=== PATIENT | female | born 1930 | race Caucasian/White ===

== ENCOUNTER → 2016-04-17 | Outpatient (CLI) | payer MEDICARE ==
[~2016-04-17] MED LIST: ALPR0.2550 PO; ALPR0.5T72 PO; AMLO5TAB2 PO; ASCO500T20 PO; ASP325TEC PO; ASP81TEC PO; ATEN25TA PO; ATEN50TA PO; CA C1TAB66 PO; CALC-404 PO; CHOL10003 PO; CLOP75TA PO; CLOP75TA28 PO; CYAN10007 PO; CYAN1TAB26 PO; ISM60TCR PO; ISOS30TA3 PO; ISOS30TA7 PO; LANS30CA PO; LOSA100T16 PO; LVT.1T PO; MAGN-47 PO; MAGN400C PO; Metoprolol Succinate PO; NTR.4SL SL; PARO10TA2 PO; PNT40TEC PO; POTA10TA PO; SIMV40TA2 PO; TOLT1TAB PO; TRAM50TA2 PO; TRIA1TAB2 PO; TRIA1TAB3 PO; TRM50T PO
--- OUTSIDE RECORDS SUMMARY | 2016-04-17 15:16 | XMS REPORT | Continuity of Care Document ---
Author Author [facility] Organization [facility] Address Unknown Phone Unavailable Care Team Providers Care Knitting Machine Fixer Head Name Role Phone SHLOMO KENNEDY MD PCP Insurance Providers Payer Name Policy Number Subscriber Name Relationship Wps Medicare [id number] Kirit Wen 18 Self / Same As Patient Blue Cross Mc[employer] Supp [id number] Kirit Wen 18 Self / Same As Patient Advance Directives Directive Response Recorded Date/Time Advance Directives Yes 01/21/14 12:10pm Health Care Power of Poured Concrete Wall Technician Y ALL CHILDREN: JESS FIELDS STEVE, AND CURT 01/21/14 12:10pm Organ Donor No 01/21/14 12:10pm Resuscitation Status Full Code 01/21/14 12:10pm Chief Complaint and Reason for Visit Chief Complaint CHEST PAIN Reason for Visit Chest pain Problems Medical Problems Problem Onset Date Status Chest pain Unknown Active Medications Medication Dose Route Sig Days/Qty Instructions Order Date Discontinued Date Status Atenolol 50 Mg PO TWICE A DAY 10/04/10 02/13/11 Discontinued Triamterene/Hctz 1 Tab PO DAILY 37.5-25 MG TABLET 10/04/10 Active Levothyroxine Sodium (Levothroid) 100 Mcg PO DAILY 10/04/10 Active Alprazolam 1 Each PO BEDTIME 10/04/10 10/05/10 Discontinued Simvastatin 40 Mg PO BEDTIME 10/04/10 Active Isosorbide Dinitrate 1 Tab PO TWICE A DAY 10/04/10 10/04/10 Discontinued Losartan Potassium 100 Mg PO DAILY 10/04/10 Active Lansoprazole 30 Mg PO DAILY before breakfast 10/04/10 10/06/10 Discontinued Cholecalciferol 1,000 Unit PO DAILY 10/04/10 09/04/12 Discontinued Cyanocobalamin 1,000 Mcg PO 10/04/10 10/05/10 Discontinued Aspirin 81 Mg PO BEDTIME 10/04/10 10/06/10 Discontinued Ca Carbonate/Vitamin D3/Vit K 1 Each PO 10/04/10 10/05/10 Discontinued Isosorbide Mononitrate 60 Mg PO DAILY 10/04/10 01/21/14 Discontinued Tolterodine Tartrate 1 Mg PO DAILY PRN 10/04/10 09/03/12 Discontinued Calcium Carbonate/Vitamin D3 1 Tab PO DAILY 10/05/10 09/04/12 Discontinued Cyanocobalamin/Folic Acid 1 Tab PO DAILY 10/05/10 09/04/12 Discontinued Alprazolam 0.25 Mg PO BEDTIME 10/05/10 Active Ascorbic Acid 500 Mg PO DAILY 10/05/10 01/11/12 Discontinued Aspirin 325 Mg PO DAILY 10/06/10 02/13/11 Discontinued Pantoprazole Sod 40 Mg PO DAILY 10/06/10 Active Clopidogrel Bisulfate 75 Mg PO DAILY 10/06/10 01/19/14 Discontinued Aspirin 81 Mg PO DAILY 02/13/11 Active Atenolol 25 Mg PO TWICE A DAY 02/13/11 09/04/12 Discontinued Magnesium Hydroxide 400 Mg PO TWICE A DAY PRN NEEDED FOR ACID REFLUX 01/07/12 09/04/12 Discontinued Tramadol HCl 1 - 2 Tab PO every 4 to 6 hours PRN 30 Qty 01/11/1205/19 Discontinued Nitroglycerin 0.4 Mg SL Q 5 MIN X 3 DOSES PRN 05/19/12 Active Paroxetine Hcl 10 Mg PO DAILY 09/03/12 Active Amlodipine Besylate (Norvasc 5 Mg) 5 Mg PO TWICE A DAY 09/04/12 Active Magnesium Oxide 400 Mg PO DAILY 09/04/12 Active Potassium Chloride 10 Meq PO DAILY 09/04/12 Active Tramadol Hcl 50-100 Mg PO EVERY 6 HOURS PRN PAIN TAKE 1-2 (50MG) TABLETS 01/19/14 Active Clopidogrel Bisulfate 75 Mg PO DAILY 01/21/14 Active Isosorbide Mononitrate (Imdur) 60 Mg PO DAILY 01/21/14 Active [Metoprolol Succinate] 50 Mg PO DAILY 30 Qty 01/22/14 Active Social History Social History Problem Response Recorded Date/Time Alcohol Use Denies Use 01/21/2014 12:10pm Recreational Drug Use No 01/21/2014 12:10pm Recent Foreign Travel No 01/21/2014 12:10pm Recent Infectious Disease Exposure No 01/21/2014 12:10pm Hospitalization with Isolation Denies 01/22/2014 7:40pm Smoking Status Never a Smoker 01/21/2014 12:10pm Query Response Start Date Stop Date Smoking Status Never a Smoker Hospital Discharge Instructions Patient Instructions Physician Instructions New, Converted or Re-Newed RX: RX on Chart Patient Instructions: Please schedule follow up appointment to see Dr. Young next week Plan of Care Discharge Date 01/22/14 12:32pm Disposition 01 HOME, SELF-CARE Instructions/Education Provided Chronic Hypertension (DC) Forms Provided PDI Medical Prescriptions See Medications Section Referrals Dr. Young (Unspecified) 1 Week JAMIE YOUNG MD FACP FACC CCDS (Unspecified) 02/01/14 Address: [address] [place] [address] [address] [place] [address] Care Plan and Goals Do not discharge until after seen by Dr. Young Functional Status Query Response Date Recorded Comprehension Ability Understands Concepts January 22, 2014 9:00am Allergies, Adverse Reactions, Alerts Allergen Type Severity Reaction Status Last Updated oxycodone HCl Allergy Unknown NAUSEA Active 01/21/14 Codeine Adverse Reaction Intermediate NAUSEA & VOMITING Active 01/16/06 acetaminophen Allergy Unknown NAUSEA Active 01/21/14 Roxithromycin Allergy Unknown Active 01/16/06 Immunizations Name Given Type Date of Pneumonia Vaccine 01/22/14 Historical Date of Influenza Vaccine 12/09/13 Historical Hepatitis A No Historical Hepatitis B No Historical Tetanus Booster (TDap) Unknown Historical pneumococcal polysaccharide PPV23 01/22/14 Administered pneumococcal polysaccharide PPV23 01/22/14 Administered Vital Signs Acute Vital Signs Vital Response Date/Time Temperature (Fahrenheit) 99.0 degrees F (97.6 - 99.5) Temperature (Calculated Celsius) 37.39551 degrees C (36.4 - 37.5) Temperature Source Tympanic Pulse Rate (adult) 63 bpm (60 - 90) Respiratory Rate 20 bpm (12 - 24) O2 Sat by Pulse Oximetry 96 % (88 - 100) Blood Pressure 147/75 mm Hg Pain Pain Intensity 0 Height (Feet) 5 feet Height (Inches) 2.00 inches Height (Calculated Centimeters) 157.225214 cm Weight (Pounds) 220 pounds Weight (Ounces) 8.0 oz Weight (Calculated Grams) 612148.119 gm Weight (Calculated Kilograms) 100.848916 kilograms Calculated BMI 41.15 Results Test Source Date Result Interp. Ref. Range Comments Activated Partial Thromboplast Time September 03, 2012 9:24am 32 SEC N 24-35 Has specimen been collected/obtained? Y Alanine Aminotransferase (ALT/SGPT) September 04, 2012 4:50am 27 U/L L 30-65 Albumin September 04, 2012 4:50am 3.0 G/DL L 3.4-5.0 Alkaline Phosphatase September 04, 2012 4:50am 62 U/L N 50-136 Amylase Level October 04, 2010 3:30pm 29 U/L N 25-115 Aspartate Amino Transf (AST/SGOT) September 04, 2012 4:50am 13 U/L L 15-37 B-Type Natriuretic Peptide January 30, 2011 11:24am 102.0 PG/ML H 5.0- 100.0 BUN/Creatinine Ratio September 04, 2012 4:50am 13 - Basophils # (Auto) September 04, 2012 4:50am 0.1 10^3/uL N 0.0-0.1 Basophils (%) (Auto) September 04, 2012 4:50am 1 % N 0-10 Blood Urea Nitrogen September 04, 2012 4:50am 20 MG/DL H 7-18 Calcium Level September 04, 2012 4:50am 8.2 MG/DL L 8.5-10.1 Carbon Dioxide Level September 04, 2012 4:50am 25 MMOL/L N 21-32 Chloride Level September 04, 2012 4:50am 102 MMOL/L N 101-110 Cholesterol Level September 04, 2012 4:50am 131 MG/DL N -200 Creatine Kinase MB September 03, 2012 9:24am 0.5 NG/ML N 0.0-3.6 Has specimen been collected/obtained? Y Creatinine September 04, 2012 4:50am 1.5 MG/DL H 0.6-1.3 D-Dimer September 03, 2012 9:24am 0.51 UG/ML H 0.00-0.49 Comments to Dial Screw Assembler: ADD TO BLOOD IN LAB Eosinophils # (Auto) September 04, 2012 4:50am 0.3 10^3/uL N 0.0-0.3 Eosinophils (%) (Auto) September 04, 2012 4:50am 6 % N 0-10 Erythrocyte Sedimentation Rate January 09, 2006 10:05am 20 MM/HR N 0- 30 Has specimen been collected/obtained? Y Glucose Level September 04, 2012 4:50am 121 MG/DL H 74-106 HDL Cholesterol September 04, 2012 4:50am 55 MG/DL N 35-60 Hematocrit September 04, 2012 4:50am 31 % L 35-52 Hemoglobin September 04, 2012 4:50am 10.6 G/DL L 11.5-16.0 Hemoglobin A1c January 30, 2011 11:24am 6.0 % N 4.8-6.0 LDL Cholesterol September 04, 2012 4:50am 58 MG/DL N 0-129 Lipase October 04, 2010 3:30pm 116 U/L N 73-393 Lymphocytes # (Auto) September 04, 2012 4:50am 1.4 X 10^3 N 1.0-4.0 Lymphocytes (%) (Auto) September 04, 2012 4:50am 27 % N 12-44 Magnesium Level September 04, 2012 4:50am 1.8 MG/DL N 1.8-2.4 Mean Corpuscular Hemoglobin September 04, 2012 4:50am 28 PG N 25-34 Mean Corpuscular Hemoglobin Concent September 04, 2012 4:50am 34 G/DL N 32- 36 Mean Corpuscular Volume September 04, 2012 4:50am 83 FL N 80-99 Mean Platelet Volume September 04, 2012 4:50am 11.5 FL H 7.4-10.4 Monocytes # (Auto) September 04, 2012 4:50am 0.6 X 10^3 N 0.0-1.0 Monocytes (%) (Auto) September 04, 2012 4:50am 11 % N 0-12 Myoglobin September 03, 2012 9:24am 96 UG/L H 10-92 Has specimen been collected/obtained? Y Neutrophils # (Auto) September 04, 2012 4:50am 2.8 X 10^3 N 1.8-7.8 Neutrophils (%) (Auto) September 04, 2012 4:50am 56 % N 42-75 Platelet Count September 04, 2012 4:50am 171 10^3/uL N 130-400 Potassium Level September 04, 2012 4:50am 3.8 MMOL/L N 3.6-5.0 Prothromb Time International Ratio February 13, 2011 12:41pm 1.0 N 0.8- 1.4 INTERPRETIVE DATASUGGESTED THERAPEUTIC RANGE FOR INR'S : VENOUS THROMBOSIS, PULMONARY EMBOLISM, OR PREVENTION OF SYSTEMIC EMBOLISM (EG. IN ATRIAL FIBRILLATION): 2.0 - 3.0 MECHANICAL PROSTHETIC HEART VALVES: 2.5 - 3.5* *NOTE: INR'S UP TO 4.5 MAY BE NECESSARY IN SELECTED GROUPS OF HIGH RISK PATIENTS. [employer] OF CHEST PHYSICIANS CONSENSUS CONFERENCE ON ANTITHROMBOTIC THERAPY (2000). Prothrombin Time September 03, 2012 9:24am 13.0 SEC N 12.2-14.7 Has specimen been collected/obtained? Y Red Blood Count September 04, 2012 4:50am 3.77 10^6/uL L 4.35-5.85 Red Cell Distribution Width September 04, 2012 4:50am 14.3 % N 10.0-14.5 Sodium Level September 04, 2012 4:50am 133 MMOL/L L 135-145 Thyroid Stimulating Hormone (TSH) October 05, 2010 3:58am 1.34 UIU/ML N 0.34-5.60 Total Bilirubin September 04, 2012 4:50am 0.4 MG/DL N 0.0-1.0 Total Creatine Kinase September 03, 2012 9:24am 93 U/L N 1-159 Has specimen been collected/obtained? Y Total Protein September 04, 2012 4:50am 5.9 G/DL L 6.4-8.2 Triglycerides Level September 04, 2012 4:50am 90 MG/DL N 30.0-150.0 Troponin I September 03, 2012 3:34pm < 0.10 NG/ML 0.00-0.10 Any elevation of troponin above the limit of the reference range is indicative of myocardial injury from any cause. Significant interval decrease or increase between elevated troponin values at 0 and 6 hours (> 20%) would, in the context of related clinical and EKG findings favor ischemic myocardial injury. Urine Bacteria October 05, 2010 4:35am NEGATIVE - Has specimen been collected/obtained? YComments to Dial Screw Assembler: ALREADY SENT THE UA Specimen Description VOID Urine Bilirubin October 05, 2010 4:35am NEGATIVE - Has specimen been collected/obtained? YComments to Dial Screw Assembler: ALREADY SENT THE UA Specimen Description VOID Urine Casts October 05, 2010 4:35am NONE - Has specimen been collected/ obtained? YComments to Dial Screw Assembler: ALREADY SENT THE UA Specimen Description VOID Urine Clarity October 05, 2010 4:35am CLEAR - Has specimen been collected/obtained? YComments to Dial Screw Assembler: ALREADY SENT THE UA Specimen Description VOID Urine Color October 05, 2010 4:35am YELLOW - Has specimen been collected /obtained? YComments to Dial Screw Assembler: ALREADY SENT THE UA Specimen Description VOID Urine Crystals October 05, 2010 4:35am NONE - Has specimen been collected/obtained? YComments to Dial Screw Assembler: ALREADY SENT THE UA Specimen Description VOID Urine Culture Indicated October 05, 2010 4:35am NO - Has specimen been collected/obtained? YComments to Dial Screw Assembler: ALREADY SENT THE UA Specimen Description VOID Urine Glucose (UA) October 05, 2010 4:35am NEGATIVE - Has specimen been collected/obtained? YComments to Dial Screw Assembler: ALREADY SENT THE UA Specimen Description VOID Urine Ketones October 05, 2010 4:35am NEGATIVE - Has specimen been collected/obtained? YComments to Dial Screw Assembler: ALREADY SENT THE UA Specimen Description VOID Urine Leukocyte Esterase October 05, 2010 4:35am NEGATIVE - Has specimen been collected/obtained? YComments to Dial Screw Assembler: ALREADY SENT THE UA Specimen Description VOID Urine Mucus October 05, 2010 4:35am NEGATIVE - Has specimen been collected/obtained? YComments to Dial Screw Assembler: ALREADY SENT THE UA Specimen Description VOID Urine Nitrate January 09, 2006 10:12am Negative - Has specimen been collected/obtained? YSpecimen Description CLEAN CATCH Urine Nitrite October 05, 2010 4:35am NEGATIVE - Has specimen been collected/obtained? YComments to Dial Screw Assembler: ALREADY SENT THE UA Specimen Description VOID Urine Protein October 05, 2010 4:35am NEGATIVE - Has specimen been collected/obtained? YComments to Dial Screw Assembler: ALREADY SENT THE UA Specimen Description VOID Urine RBC October 05, 2010 4:35am NONE /HPF - Has specimen been collected/obtained? YComments to Dial Screw Assembler: ALREADY SENT THE UA Specimen Description VOID Urine Specific [place] October 05, 2010 4:35am 1.015 L - Has specimen been collected/obtained? YComments to Dial Screw Assembler: ALREADY SENT THE UA Specimen Description VOID Urine Squamous Epithelial Cells October 05, 2010 4:35am 5-10 - Has specimen been collected/obtained? YComments to Dial Screw Assembler: ALREADY SENT THE UA Specimen Description VOID Urine Urobilinogen October 05, 2010 4:35am NORMAL MG/DL - Has specimen been collected/obtained? YComments to Dial Screw Assembler: ALREADY SENT THE UA Specimen Description VOID Urine WBC October 05, 2010 4:35am RARE /HPF - Has specimen been collected/obtained? YComments to Dial Screw Assembler: ALREADY SENT THE UA Specimen Description VOID Urine pH October 05, 2010 4:35am 5.0 - Has specimen been collected/ obtained? YComments to Dial Screw Assembler: ALREADY SENT THE UA Specimen Description VOID VLDL Cholesterol September 04, 2012 4:50am 18 MG/DL N 5-40 White Blood Count September 04, 2012 4:50am 5.1 10^3/uL N 4.3-11.0 Glucometer September 04, 2012 11:06am 144 MG/DL H 70-110 Lab Scanned Report October 05, 2010 8:00am Referred Lab Report [id number] - Estimat Glomerular Filtration Rate September 03, 2012 9:24am 27 - GFR INTERPRETIVE DATA UNITS FOR ESTIMATED GFR (eGFR): mL/min/1.73 M2 REFERENCE RANGE FOR ESTIMATED GFR (eGFR) eGFR NORMAL eGFR >60 MODERATELY DECREASED eGFR 30-59 SEVERLY DECREASED eGFR 15-29 KIDNEY FAILURE <15 (OR DIALYSIS) Creatine Kinase October 05, 2010 3:58am 54 U/L N 1-159 Cardiac Panel Pathologist Review October 04, 2010 3:50pm SEE CARDIAC PATH REV - Urine RBC (Auto) October 05, 2010 4:35am NEGATIVE - Has specimen been collected/obtained? YComments to Dial Screw Assembler: ALREADY SENT THE UA Specimen Description VOID INR Comment September 03, 2012 9:24am 1.0 N 0.8-1.4 INTERPRETIVE DATASUGGESTED THERAPEUTIC RANGE FOR INR'S: VENOUS THROMBOSIS, PULMONARY EMBOLISM, OR PREVENTION OF SYSTEMIC EMBOLISM (EG. IN ATRIAL FIBRILLATION): 2.0 - 3.0 MECHANICAL PROSTHETIC HEART VALVES: 2.5 - 3.5* *NOTE: INR'S UP TO 4.5 MAY BE NECESSARY IN SELECTED GROUPS OF HIGH RISK PATIENTS. [employer] PHYSIC[employer] CONSENSUS CONFERENCE ON ANTITHROMBOTIC THERAPY (2000). MRSA Screen Nasal January 07, 2012 12:40pm MRSA not isolated Procedures Procedure Status Date Provider(s) DIAGNOSTIC COLONOSCOPY completed 01/19/14 CHUYITA WILL MD Tracing only of electrocardiogram completed 01/21/14 BHAVIK INMAN MD Tracing only of electrocardiogram completed 01/21/14 JAMIE YOUNG MD [facility] CCDS Tracing only of electrocardiogram completed 01/21/14 JAMIE YOUNG MD [facility] FAC CCDS Encounters Encounter Location Date/Time Discharged Inpatient Via [facility] 01/21/14 11:38am Registered Clinic Via [facility] 01/15/14 11:44am Discharged Recurring Via [facility] 11/19/13 10:50am Recent Diagnosis Chest pain
--- NOTE | 2016-04-17 19:05 | Diagnostic Imaging Report ---
Three views of the sacrum and coccyx. INDICATION: Fall. FINDINGS: No fracture, dislocation or radiopaque foreign body is seen. There are subchondral sclerotic changes at the SI joints seen, more on the right side. No radiopaque foreign body seen. 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 Dictated by: Dictated on workstation # [id number]
== END ==
LOC: RAD 15:12
PROVIDERS: ATTEND Nurse Practitioner Family
DX: M53.3 Sacrococcygeal disorders, not elsewhere classified (principal); W19.XXXA Unspecified fall, initial encounter; Y99.8 Other external cause status
CPT/HCPCS: 72220

== ENCOUNTER 2016-09-07 14:00 | Outpatient (RCR) | payer MEDICARE | END 2016-10-10 14:21 | disposition home or self-care (01) | PROVIDERS: ATTEND Nurse Practitioner Family | DX: M54.5 Low back pain (principal) ==

== ENCOUNTER → 2016-10-09 | Outpatient (CLI) | payer MEDICARE | LOC: CARD 08:52 | PROVIDERS: ATTEND Nurse Practitioner Family | DX: I35.8 Other nonrheumatic aortic valve disorders (principal); I12.9 Hypertensive chronic kidney disease with stage 1 through stage 4 chronic kidney disease, or unspecified chronic kidney disease; M79.89 Other specified soft tissue disorders; I25.10 Atherosclerotic heart disease of native coronary artery without angina pectoris; I65.23 Occlusion and stenosis of bilateral carotid arteries; N18.9 Chronic kidney disease, unspecified | CPT/HCPCS: 93306 ==

== ENCOUNTER → 2016-12-11 | Outpatient (CLI) | payer MEDICARE | LOC: RAD 11:59 | PROVIDERS: ATTEND Family Medicine | DX: Z12.31 Encounter for screening mammogram for malignant neoplasm of breast (principal) | CPT/HCPCS: 77067 ==

== ENCOUNTER 2016-12-31 21:06 | Outpatient (CLI) | payer MEDICARE | END 2017-01-01 06:07 | disposition home or self-care (01) | LOC: SLEEP 21:06 | PROVIDERS: ATTEND Nurse Practitioner | DX: G47.33 Obstructive sleep apnea (adult) (pediatric) (principal); G47.10 Hypersomnia, unspecified | CPT/HCPCS: 95810 ==

== ENCOUNTER 2017-02-04 20:00 | Outpatient (CLI) | payer MEDICARE | END 2017-02-05 06:40 | disposition home or self-care (01) | LOC: SLEEP 20:00 | PROVIDERS: ATTEND Nurse Practitioner Family | DX: G47.10 Hypersomnia, unspecified (principal); R06.83 Snoring; I10 Essential (primary) hypertension; E66.9 Obesity, unspecified; Z68.41 Body mass index [BMI] 40.0-44.9, adult | CPT/HCPCS: 95811 ==

== ENCOUNTER → 2017-12-26 | Outpatient (CLI) | payer MEDICARE ==
[~2017-12-26] MED LIST changes: +CATHETER FLUSH 10 ML SYR IV PRN; +REGADENOSON 0.4 MG/5 ML SYR (LEXISCAN) IV ONE
[2017-12-26 08:33] VITALS: BP 149/81
--- NOTE | 2017-12-28 00:34 | STRESS TEST ---
DATE OF SERVICE: 12/26/2017 RESTING AND POST REGADENOSON TECHNETIUM-99M TETROFOSMIN SPECT CT IMAGING ORDERING PHYSICIAN: Yuliya Queen APRN PRIMARY PHYSICIAN: Dr. Pozo. OTHER PHYSICIAN: Dr. Taveras. CLINICAL DIAGNOSIS: Shortness of breath, coronary artery disease. Baseline images were carried out after injection of 10.94 mCi of technetium-99m Tetrofosmin. This was followed by 0.4 mg regadenoson and 31.5 mCi technetium-99m Tetrofosmin for stress imaging. The electrocardiogram showed sinus rhythm at baseline. It did not change significantly with the regadenoson infusion. There was some baseline artifact during the electrocardiographic recordings. She tolerated the procedure well. Review of images at rest and following stress does not indicate any significant perfusion defects consistent with significant myocardial ischemia or infarction. Gated images show normal global left ventricular systolic function with normal regional wall motion. Left ventricular ejection fraction was calculated to be 77%. Left ventricular end diastolic volume is 57 mL. TID is absent (1.11). CONCLUSIONS: 1. No evidence of any significant myocardial ischemia or infarction on this study. 2. Normal regional wall motion. 3. Normal global left ventricular systolic function with a calculated ejection fraction of 77%. Job ID: [id number] DocumentID: [id number] Dictated Date: 12/27/2017 20:43:40 Manager Integrity Date: 12/28/2017 00:33:19 Dictated By: JAMIE TAVERAS MD, MA, FACP, FACC,
== END ==
LOC: CARD 07:02
PROVIDERS: ATTEND Nurse Practitioner Family
DX: R06.09 Other forms of dyspnea (principal); I25.10 Atherosclerotic heart disease of native coronary artery without angina pectoris; I10 Essential (primary) hypertension; M79.89 Other specified soft tissue disorders
CPT/HCPCS: 78452; 93017

== ENCOUNTER → 2017-12-26 | Outpatient (CLI) | payer MEDICARE ==
[~2017-12-26] MED LIST changes: -CATHETER FLUSH 10 ML SYR IV PRN; -REGADENOSON 0.4 MG/5 ML SYR (LEXISCAN) IV ONE
--- NOTE | 2017-12-26 18:57 | Diagnostic Imaging Report ---
INDICATION: Routine screening. Comparison is made with prior mammogram from 12/11/2016 and 11/17/2015. 2-D and 3-D bilateral screening mammography was performed with CAD. The current study was also evaluated with a Computer Aided Detection (CAD) system. FINDINGS: Both breasts are heterogeneously dense, limiting the sensitivity of mammography. There are benign calcifications scattered throughout both breasts. No dominant mass or malignant-appearing microcalcifications are seen. The axillae are unremarkable. IMPRESSION: No mammographic features suspicious for malignancy are identified. ACR BI-RADS Category 2: Benign findings. Result letter will be mailed to the patient. Note: At least 10% of breast cancer is not imaged by mammography. Dictated by: Dictated on workstation # [id number]
== END ==
LOC: RAD 09:20
PROVIDERS: ATTEND Nurse Practitioner Family
DX: Z12.31 Encounter for screening mammogram for malignant neoplasm of breast (principal)
CPT/HCPCS: 77067

== ENCOUNTER → 2019-01-05 | Outpatient (CLI) | payer MEDICARE ==
--- NOTE | 2019-01-05 12:23 | Diagnostic Imaging Report ---
INDICATION: Routine screening. COMPARISON: 12/26/2017 and 12/11/2016. TECHNIQUE: 2D and 3D bilateral screening mammography was performed with CAD. FINDINGS: Scattered fibroglandular densities are identified bilaterally. An ovoid nodular density in the outer right breast appears stable. Scattered benign-appearing parenchymal and vascular calcifications are noted bilaterally. No new mass or malignant appearing microcalcifications are seen. The axillae are unremarkable. IMPRESSION: No mammographic features suspicious for malignancy are identified. ACR BI-RADS Category 2: Benign findings. Result letter will be mailed to the patient. Note: At least 10% of breast cancer is not imaged by mammography. Dictated by: Dictated on workstation # [id number]
== END ==
LOC: RAD 08:33
PROVIDERS: ATTEND Nurse Practitioner Family
DX: Z12.31 Encounter for screening mammogram for malignant neoplasm of breast (principal)
CPT/HCPCS: 77067